=== PATIENT | female | born 1980 ===

== ENCOUNTER 2020-07-09 10:55 | Emergency (ER) | payer MEDICAID, SELFPAY ==
[2020-07-09 11:34] VITALS: BP 169/81; PULSE 80; RESP 18; TEMP 36.6; O2SAT 100; BMI 28.8
--- NOTE | 2020-07-09 11:37 | XR_ITS ---
EXAMINATION: XR TOES, LEFT CLINICAL INFORMATION: Trauma COMPARISON: None TECHNIQUE: 3 views of the left toes were obtained. FINDINGS: There is dorsal dislocation of the proximal phalanx with respect to the metatarsal head of the first or great toe at the first MTP joint. No fracture is seen. Soft tissues are unremarkable. XR/XR toe LT min 2V IMPRESSION: Dorsal dislocation of the proximal phalanx with respect to the metatarsal head of the first MTP joint.
[2020-07-09] MEDS: Ibuprofen 600 MG TABLET PO (11:55)
--- NOTE | 2020-07-09 12:27 | ED_ITS ---
HPI - Extremity Problem General Chief complaint: Extremity Problem Stated complaint: TOE INJ Time Seen by Provider: 07/09/20 11:33 Source: patient Mode of arrival: wheelchair Limitations: no limitations History of Present Illness HPI Narrative: Patient is a 31-year-old female no significant past medical history who slipped and whacked her left great toe on the wall. She states she is unable to ambulate on it. She has no other complaints, she states her ankle is fine in all the other toes are fine. She did not try ice or heat or any analgesics prior to arrival. Related Data Allergies Allergy/AdvReac Type Severity Reaction Status Date / Time No Known Allergies Allergy Verified 07/09/20 11:33 [No Known Allergies*] Review of Systems Review of Systems: Yes all other systems are reviewed and are negative [facility] Past Medical History Medical History No known health problems Social History Social History Alcohol intake: never Smoking Status: Never smoker Use of substances other than those prescribed or required for medical reasons: No Advance Directives: No Advance Directives Information Provided: Yes Physical Exam Vital Signs: Vital Signs: Last Vital Signs Temp 97.8 F 07/09/20 11:34 Pulse 80 07/09/20 11:34 Resp 18 07/09/20 11:34 BP 169/81 H 07/09/20 11:34 Pulse Ox 100 07/09/20 11:34 Body Mass Index 28.8 Const: General: cooperative, healthy appearing, comfortable, no acute distress and well developed Nutritional Appearance: average body habitus Orientation/consciousness: patient oriented x3 Eyes: General: appearance normal, both eyes and all related structures Neck: Neck: Yes normal visual inspection Skin: General skin exam: no rashes or lesions noted Neuro: General: patient oriented x3 Extrem: Other: Left great toe obviously deformed, TTP, unable to flex or extend, NVI, good pulses on foot. No lacerations, ecchymosis or signs of infection noted. 5/5 strength and sensation intact on ankle and the other 4 toes. Course Course Course Narrative: 39-year-old female with no significant past medical history who stubbed her toe just prior to arrival, unable to ambulate on it or move her toe. Will get x-ray. 12:30pm x-ray revealed great toe dislocation, with the help of KASSANDRA Gaston, relocated toe with great relief to the patient, patient now has full range of motion, NVI. Will get repeat x-ray to confirm, then berto-taped and ortho shoe if necessary. 1:40pm x-ray shows great toe reduced properly, no fractures. Will berto-tape and discharge patient Discharge Plan Discharge Clinical Impression: Closed dislocation of toe of left foot Qualifiers: Encounter type: initial encounter Qualified Code(s): S93.105A - Unspecified dislocation of left toe(s), initial encounter Patient Disposition: Home, Self-Care Instructions: Closed Reduction (ED) Additional Instructions: Please follow-up with your PCP if you are not feeling better in the next 5-7 days
--- NOTE | 2020-07-09 12:39 | XR_ITS ---
EXAMINATION: XR TOES, LEFT CLINICAL INFORMATION: Status post reduction COMPARISON: Right toe performed earlier at 1148 today TECHNIQUE: 3 views of the left toes were obtained. FINDINGS: Status post reduction there is normal alignment of first MTP joint. No fracture seen. The soft tissues are normal. XR/XR toe LT min 2V IMPRESSION: Normal alignment of first MTP joint status post reduction. No acute fracture seen.
--- NOTE | 2020-07-09 13:57 | PC.NURSE ---
L GREAT TOE JOHN TAPED
== END 2020-07-09 13:58 | disposition home or self-care (01) ==
PROVIDERS: Emergency Provider Emergency Medicine
DX: S93.105A Unspecified dislocation of left toe(s), initial encounter (principal); M79.675 Pain in left toe(s); Y29.XXXA Contact with blunt object, undetermined intent, initial encounter; Y93.01 Activity, walking, marching and hiking; Y92.009 Unspecified place in unspecified non-institutional (private) residence as the place of occurrence of the external cause; Y99.9 Unspecified external cause status
CPT/HCPCS: 73660; 99283; 99284

== ENCOUNTER 2020-08-27 00:47 | Emergency (ER) | payer MEDICAID, SELFPAY ==
--- NOTE | ~2020-08-27 | CT_ITS ---
EXAMINATION: CT ABDOMEN AND PELVIS WITH CONTRAST CLINICAL INFORMATION: Abdominal pain. COMPARISON: None TECHNIQUE: Multidetector volumetric images were obtained from the superior aspect of the liver through the pubic symphysis following administration 85 mL of Omnipaque 350 intravenous contrast. Sagittal and coronal reformatted images were obtained on the technologist's workstation. Oral contrast: No This CT examination was performed using dose optimization techniques as appropriate, variously including the following: *Automated exposure control *Adjustment of mA and/or kV according to patient size (this includes techniques or standardized protocols for targeted exams where dose is matched to indication/reason for exam; i.e. extremities or head) *Use of iterative reconstruction technique DLP: 492 mGy-cm FINDINGS: LUNG BASES: Mild dependent atelectasis. LIVER, GALLBLADDER, AND BILIARY TREE: There is a 2.2 cm focus of hypoattenuation within hepatic segment 4A near the falciform ligament, most consistent with focal fatty infiltration or aberrant venous inflow. No suspicious hepatic lesions are identified. The liver is normal in contour and attenuation and at the upper limits of normal in size. The gallbladder is unremarkable with no evidence of radiopaque gallstones, gallbladder wall thickening, or obvious pericholecystic inflammatory changes. PANCREAS: Unremarkable. SPLEEN: Unremarkable. ADRENAL GLANDS: Unremarkable. KIDNEYS AND URETERS: There is moderate bilateral hydroureteronephrosis, right side greater than left. No nephrolithiasis or ureterolithiasis. Kidneys are normal in size and contour with symmetric attenuation. No perinephric stranding. The dilated ureters return to a normal caliber at the level of the pelvis adjacent to the markedly enlarged, leiomyomatous uterus. BLADDER: There is significant mass effect on the bladder produced by the adjacent enlarged uterus. A Otoole catheter terminates within the bladder. No bladder wall thickening. GASTROINTESTINAL TRACT: Stomach, small bowel, and colon are normal in caliber. No bowel wall thickening or surrounding inflammatory changes. Appendix is normal. No intraperitoneal free fluid or free air. ABDOMINAL WALL: No significant hernia is appreciated. LYMPH NODES: Normal. VASCULAR: Mild fibrofatty atherosclerotic plaques are present in the infrarenal abdominal aorta. No aneurysmal dilatation. PELVIC VISCERA: There is an enlarged, heterogeneous uterus with multiple fibroids. The largest of these is in the posterior wall uterine body, measuring roughly 8 x 7.3 x 6 cm in size. This likely produces mass effect upon adjacent structures including the ureters. There is a 3.8 cm cyst at the left ovary which appears simple. No appreciable right ovarian abnormalities. OSSEOUS STRUCTURES: Mild anterior wedging of the T11 vertebral body is likely physiologic. There is mild multilevel degenerative disc disease within the lower thoracic spine. No acute osseous abnormalities. Minimal osteoarthritis in the hips. CT/CT abdomen pelvis w con IMPRESSION: 1. Moderate bilateral hydroureteronephrosis is likely produced by mass effect on the ureters in the pelvis by the large leiomyomatous uterus. No renal or ureteral calculi or other obstructing abnormalities are identified. 2. A 3.8 cm simple appearing left ovarian cyst, most likely a follicular cyst.
[2020-08-27 00:56] VITALS: BP 187/101; PULSE 101; RESP 16; TEMP 36.8; O2SAT 98; BMI 29.2
--- NOTE | 2020-08-27 01:02 | ED_ITS ---
HPI - Abdominal Pain General Chief Complaint: Abdominal Pain Stated Complaint: ABD PAIN Time Seen by Provider: 08/27/20 00:57 History of Present Illness HPI narrative: Patient is a 39-year-old female presented today with having difficulty urinating since this evening. Patient denies any chest pain or shortness of breath no systemic complaints. Patient is currently not on any medication. Patient complaining of pain on urination. No fever no chills. No coughing or congestion or upper respiratory symptoms. Not on any narcotics. Denies any recreational drug use Related Data Allergies Allergy/AdvReac Type Severity Reaction Status Date / Time No Known Allergies Allergy Verified 07/09/20 11:33 [No Known Allergies*] Review of Systems Review of Systems Constitutional: No Weight loss, No Fever, No Chills, No Night Sweats, No Fatigue, No Malaise ENT/Mouth: No Hearing loss, No Ear Pain, No Nasal Congestion, No Sinus Pain, No Hoarseness, No sore throat, No Rhinorrhea, No Swallowing Difficulty Eyes: No Eye Pain, No Swelling, No Redness, No Foreign Body, No Discharge, No Vision Changes Cardiovascular: No Chest Pain, No SOB, No Dyspnea on Exertion, No Orthopnea, No Edema, No Palpitations Respiratory: No Cough, No Sputum, No Wheezing, No Smoke Exposure, No Dyspnea Gastrointestinal: No Nausea, No Vomiting, No Diarrhea, No Constipation, No abdominal Pain, No Hematochezia, No Melena Genitourinary: Positive pain on urination. Positive retention Musculoskeletal: No joint pain, No Myalgias, No Joint Swelling Skin: No Skin Lesions, No rash Neuro: No Weakness, No Numbness, No Paresthesias, No Loss of Consciousness, No Dizziness, No Headache Psych: No Anxiety/Panic, No Depression, No SI/HI/AH/VH, No Social Issues, Heme/Lymph: No Bruising, No Bleeding,No Lymphadenopathy Endocrine: No Polyuria, No Polydipsia, No Temperature Intolerance Physical Exam Vital Signs: Vital Signs: Last Vital Signs Temp 98.2 F 08/27/20 00:56 Pulse 101 H 08/27/20 00:56 Resp 16 08/27/20 00:56 BP 187/101 H 08/27/20 00:56 Pulse Ox 98 08/27/20 00:56 Body Mass Index 29.2 Appearance: Alert. Oriented X3. No acute distress. Eyes: Pupils equal, round and reactive to light. ENT: Pharynx normal. Neck: Normal inspection. Neck supple. No lymph nodes noted. No crepitus CVS: Normal heart rate and rhythm. Pulses normal. Normal S1 and S2 Respiratory: No respiratory distress. Breath sounds normal. No Wheezing. No rales Abdomen: Soft and nontender. No rigidity. No distention. good BS x4 Skin: Skin warm and dry. Normal skin color. Normal skin turgor. Extremities: No lower extremity edema. Neurovascular intact to all extremities. No Lacerations. No Rash Neuro: Oriented X 3. No motor deficit. No sensory deficit. Moving all extermities. No slurred speech MDM - Abdominal Pain MDM Narrative Medical decision making narrative: Otoole placed over L of urine was taken out. Patient's creatinine is normal. Hemoglobin is 10. CT scan of the abdomen showed a large fibroid uterus. Likely the cause of patient's urinary retention. Case will be discussed with OBGYN. Will have need follow-up on an outpatient basis. In stable condition. Discussed with Dr. Reuben Araya. Feel comfortable following up on an outpatient basis. Thinks patient should be followed up with [facility] as the surgery will likely occur there. Both numbers given to patient. Currently in stable condition with discharge home. A copy of the CD was also made for patient. Differential Diagnosis Differential diagnosis narrative:: Urinary retention Lab Data Result diagrams: 08/27/20 01:09 08/27/20 01:08 Labs: Lab Results 08/27/20 08/27/20 08/27/20 Range/Units 01:08 01:09 01:09 WBC 12.1 H (4.8-10.8) X10*3/uL RBC 3.81 L (4.20-5.50) X10*6/uL Hgb 9.9 L (12.0-16.0) g/dl Hct 31.0 L (37-47) % MCV 81.4 (80-98) fL MCH 26.0 L (27.0-33.0) pg MCHC 31.9 (31.0-35.0) g/dl RDW 16.0 (11.0-16.0) % Plt Count 373 (160-400) X10*3/uL MPV 10.2 (9.4-12.3) fL Immature Gran % (Auto) 0.5 H (0.0-0.4) % Neut % (Auto) 78.3 H (45-73) % Lymph % (Auto) 14.5 L (20-40) % Mitchell % (Auto) 6.3 (2-11) % Eos % (Auto) 0.2 (0-4) % Baso % (Auto) 0.2 (0-2) % Lymph # (Auto) 1.8 (1.2-4.9) X10*3/uL Mitchell # (Auto) 0.8 (0.1-1.2) X10*3/uL Eos # (Auto) 0.0 (0.0-0.4) X10*3/uL Baso # (Auto) 0.0 (0.0-0.2) X10*3/uL Abs Immat Gran (auto) 0.06 H (0.00-0.03) X10*3/uL Absolute Neuts (auto) 9.5 H (2.0-8.3) X10*3/uL Absolute Nucleated RBC 0.000 (0.0-0.012) X10*3/uL Nucleated RBC % (auto) 0.0 (0.0-0.2) /100WBC Sodium 131 L (135-145) mmol/L Potassium 3.9 (3.3-5.1) mmol/L Chloride 101 (96-108) mmol/L Carbon Dioxide 20 L (22-29) mmol/L Anion Gap 14 (12-20) BUN 8 L (9-16) mg/dL Creatinine 0.69 (0.5-1.4) mg/dL Estim Creat Clear Calc 107.2 Estimated GFR > 60 Random Glucose 104 (60-115) mg/dL Calcium 8.7 (8.4-10.2) mg/dL Total Bilirubin 0.3 (0.0-1.0) mg/dL Direct Bilirubin < 0.2 (0.0-0.5) mg/dL AST 16 (5-31) U/L ALT 13 (0-31) U/L Alkaline Phosphatase 54 (39-117) U/L Total Protein 6.8 (6.5-8.0) g/dL Albumin 4.1 (3.5-5.0) g/dL Urine Color YELLOW Urine Appearance CLEAR Urine pH 6.0 (5.0-8.0) Ur Specific [place] <= 1.005 (1.005-1.025) Urine Protein NEG (NEG-TRACE) MG/DL Urine Glucose (UA) NEG (NEG) MG/DL Urine Ketones NEG (NEG) MG/DL Urine Blood NEG (NEG) Urine Nitrite NEG (NEG) Ur Leukocyte Esterase NEG (NEG) Discharge Plan Discharge Clinical Impression: Fibroid, Acute urinary retention Patient Disposition: Home, Self-Care Instructions: Acute Urinary Retention in Women (ED) Referrals: [facility] [Provider Group] - 2 days Chip Alexis MD [Physician] - 2 days [facility] Past Medical History Medical History No known health problems Social History Social History Alcohol intake: never Smoking Status: Never smoker Advance Directives: No Advance Directives Information Provided: No
[2020-08-27 01:17] LABS: MANUAL DIFF FLAG NO
[2020-08-27 01:18] LABS: Basophils Percent Auto 0.2 % (0-2); Eosinophils Percent Auto 0.2 % (0-4); Hemoglobin 9.9 g/dl (12.0-16.0); Imm Gran Abs Auto 0.06 X10*3/uL (0.00-0.03); Imm Gran Pct Auto 0.5 % (0.0-0.4); Lymphocytes Absolute Auto 1.8 X10*3/uL (1.2-4.9); Lymphocytes Percent Auto 14.5 % (20-40); Mean Corpuscular HGB Conc 31.9 g/dl (31.0-35.0); Mean Corpuscular Volume 81.4 fL (80-98); Mean Platelet Volume 10.2 fL (9.4-12.3); Monocytes Absolute Auto 0.8 X10*3/uL (0.1-1.2); Monocytes Percent Auto 6.3 % (2-11); Neutrophils Absolute Auto 9.5 X10*3/uL (2.0-8.3); Neutrophils Percent Auto 78.3 % (45-73); Platelet Count 373 X10*3/uL (160-400); Red Blood Count 3.81 X10*6/uL (4.20-5.50); White Blood Count 12.1 X10*3/uL (4.8-10.8)
[2020-08-27 01:41] LABS: Glucose Urine UA NEG (NEG); Leukocyte Esterase Urine NEG (NEG); Nitrite Urine NEG (NEG); Specific Gravity - Urine <= 1.005 (1.005-1.025); Urine Blood NEG (NEG); Urine Ketones NEG (NEG); Urine Protein NEG (NEG-TRACE)
[2020-08-27 01:42] LABS: Appearance Urine CLEAR; Color Urine YELLOW
[2020-08-27 01:43] LABS: Alanine Aminotransferase 13 U/L (0-31); Albumin Level 4.1 g/dL (3.5-5.0); Alkaline Phosphatase 54 U/L (39-117); Anion Gap 14 (12-20); Aspartate Amino Transferase 16 U/L (5-31); Bilirubin Direct < 0.2 mg/dL (0.0-0.5); Bilirubin Total 0.3 mg/dL (0.0-1.0); Blood Urea Nitrogen 8 mg/dL (9-16); Calcium 8.7 mg/dL (8.4-10.2); Carbon Dioxide 20 mmol/L (22-29); Chloride 101 mmol/L (96-108); Creatinine Clr Calc Pharmacy 107.2; Estimated Glomerular Filt Rate > 60; Glucose Random 104 mg/dL (60-115); Potassium 3.9 mmol/L (3.3-5.1); Sodium 131 mmol/L (135-145); Total Protein 6.8 g/dL (6.5-8.0)
--- NOTE | 2020-08-27 06:09 | PM.GYNCN ---
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 Systems Review of Systems ROS Unobtainable: All systems reviewed & are unremarkable except as noted in HPI and below Cardiovascular: Denies Palpatations, Loss of consciousness and Chest pain Respiratory: Denies Cough, Wheezing and Shortness of breath Musculoskeletal: Denies Low back pain Gastrointestinal: Denies Heartburn, Constipation, Diarrhea, Nausea and Vomiting Genitourinary: Denies Pain with urination, Burning with urination and Urinary frequency Neurological: Denies Migranes Psychological: Denies Depression [facility] Past Medical History Medical History No known health problems Social History Social History Alcohol intake: never Smoking Status: Never smoker Smoked in Last 30 Days: No Advance Directives: No Advance Directives Information Provided: No Meds Allergies Allergy/AdvReac Type Severity Reaction Status Date / Time No Known Allergies Allergy Verified 07/09/20 11:33 [No Known Allergies*] B[employer]ING ALLEY MANAGER Physical Exam Vitals Vital signs: Temp Pulse Resp BP Pulse Ox 98.2 F 101 H 16 187/101 H 98 08/27/20 00:56 08/27/20 00:56 08/27/20 00:56 08/27/20 00:56 08/27/20 00:56 Body Mass Index 29.2 [employer]ING ALLEY MANAGER - Results Labs CBC & Chem 7: 08/27/20 01:09 08/27/20 01:08 Labs: Short CBC 08/27/20 Range/Units 01:09 WBC 12.1 H (4.8-10.8) X10*3/uL Hgb 9.9 L (12.0-16.0) g/dl Hct 31.0 L (37-47) % Plt Count 373 (160-400) X10*3/uL BMP 08/27/20 01:08 Sodium 131 L Potassium 3.9 Chloride 101 Carbon Dioxide 20 L BUN 8 L Creatinine 0.69 Calcium 8.7 Liver Function 08/27/20 Range/Units 01:08 Total Bilirubin 0.3 (0.0-1.0) mg/dL Direct Bilirubin < 0.2 (0.0-0.5) mg/dL AST 16 (5-31) U/L ALT 13 (0-31) U/L Alkaline Phosphatase 54 (39-117) U/L Albumin 4.1 (3.5-5.0) g/dL Urine 08/27/20 Range/Units 01:09 Urine Color YELLOW Urine Appearance CLEAR Urine pH 6.0 (5.0-8.0) Ur Specific [place] <= 1.005 (1.005-1.025) Urine Protein NEG (NEG-TRACE) MG/DL Urine Glucose (UA) NEG (NEG) MG/DL Assessment and Plan (1) Fibroid: Status: Acute Discussed the case with Dr. DOAN, differential diagnosis discussed including possible my sarcoma given the large size of the myoma at an early age and the need for urgent hysterectomy to relieve bilateral hydroureter and prevent possible kidney damage. Recommended for the patient to follow-up with OBGYN at [facility] since there is no certified nutritionist oncologist on staff and possible need for certified nutritionist oncologist intraoperatively for the possibility of myosarcoma. The patient is to be given the number for [facility] for follow-up in 1-2 days (2) Acute urinary retention: Status: Acute
== END 2020-08-27 04:13 | disposition home or self-care (01) ==
PROVIDERS: Emergency Provider Emergency Medicine Emergency Medical Services
DX: R33.8 Other retention of urine (principal); D25.9 Leiomyoma of uterus, unspecified; N13.1 Hydronephrosis with ureteral stricture, not elsewhere classified
CPT/HCPCS: 36415; 51702; 74177; 80048; 80076; 81003; 85025; 99282; 99284; Q9967

== ENCOUNTER 2021-10-04 13:17 | Emergency (ER) | payer MEDICAID, SELFPAY ==
[2021-10-04] VITALS (10 sets, daily range): BP systolic 117–148; BP diastolic 66–89; PULSE 61–88; RESP 16–18; TEMP 36.6–37; O2SAT 97–100; BMI 27.0
--- NOTE | ~2021-10-04 | CT_ITS ---
EXAMINATION: CT HEAD WITHOUT CONTRAST CLINICAL INFORMATION: Dizziness. COMPARISON: None TECHNIQUE: Contiguous axial imaging was performed from the skull base to vertex without intravenous administration of contrast. This CT examination was performed using dose optimization techniques as appropriate, variously including the following: *Automated exposure control. *Adjustment of mA and/or kV according to patient size (this includes techniques or standardized protocols for targeted exams where dose is matched to indication/reason for exam; i.e. extremities or head). *Use of iterative reconstruction technique. DLP: 680 mGy-cm FINDINGS: There is no evidence of acute intracranial hemorrhage or edematous territorial infarction. There is no abnormal attenuation within the brain parenchyma. Mckeon-white matter differentiation is preserved. The ventricles are normal in size and configuration. No evidence for obstructive hydrocephalus. The cerebellar tonsils are mildly low lying, positioned 0.3 cm below the foramen magnum. The CSF space of the foramen magnum is maintained. No abnormal mass effect or midline shift. No extra-axial fluid collections. No acute soft tissue or osseous abnormalities. Mild mucosal thickening of the paranasal sinuses. Moderate leftward nasal septal deviation. Mild right-sided mastoid effusion. Partial thinning of the right-sided sigmoid plate without overt venous diverticulum. The left-sided mastoid air cells are well aerated. CT/CT head/brain wo con IMPRESSION: 1. No evidence of acute intracranial hemorrhage or edematous territorial infarction. 2. Mild cerebellar tonsillar ectopia.
--- NOTE | ~2021-10-04 | XR_ITS ---
EXAMINATION: XR CHEST CLINICAL INFORMATION: Shortness of breath COMPARISON: None TECHNIQUE: Frontal view of the chest was obtained. FINDINGS: No focal consolidation. No pneumothorax. Trachea is midline. Cardiomediastinal silhouette is not enlarged. No large pleural effusion. Osseous structures are intact. Soft tissues are unremarkable XR/XR chest 1V IMPRESSION: No acute cardiopulmonary process.
--- NOTE | 2021-10-04 13:24 | ECG_ITS ---
Test Reason : dizziness Blood Pressure : / mmHG Vent. Rate : 070 BPM Atrial Rate : 070 BPM P-R Int : 154 ms QRS Dur : 088 ms QT Int : 366 ms P-R-T Axes : 005 038 025 degrees QTc Int : 395 ms Normal sinus rhythm Normal ECG No previous ECGs available Referred By: Generic ED Physician Electronically Signed By:BEVERLY MORAN
--- NOTE | 2021-10-04 14:33 | ED_ITS ---
HPI - Dizziness General Chief Complaint: Dizziness Stated Complaint: dizziness Time Seen by Provider: 10/04/21 14:28 Source: patient, family (Significant other) and interpreter translator Mode of arrival: ambulatory Limitations: no limitations History of Present Illness HPI Narrative: 41-year-old female came in for evaluation of dizziness for the past 4-5 days. Patient describes dizziness as room spinning around her, it is intermittent, more when she changed position specially from supine to stand, symptoms is associated with feeling tired, sleeping more and headache since yesterday. While interviewing the patient found to be short of breath and wheezing, patient declined any recent travel or lower extremity swelling, recently quit smoking about a month ago. Related Data Previous Rx's Medication Instructions Recorded albuterol sulfate 90 mcg/actuation 1 inh INHALATION QID PRN #6.7 g 10/04/21 aerosol inhaler Allergies Allergy/AdvReac Type Severity Reaction Status Date / Time No Known Allergies Allergy Verified 10/04/21 13:40 [No Known Allergies*] Review of Systems Review of Systems: All other systems are reviewed and are negative Constitutional: Reports as per HPI and Reports no additional constitutional comp laints Eyes: Reports as per HPI and Reports no additional eye complaints Reports system reviewed and no additional complaints, except as documented Cardiovascular: Reports as per HPI and Reports no additional cardiovascular complaints Respiratory: Reports as per HPI and Reports no additional respiratory complaints Gastrointestinal: Reports as per HPI and Reports no additional gastrointestinal complaints Genitourinary: Reports no additional female genitourinary complaints Musculoskeletal: Reports no additional musculoskeletal complaints Skin/Breast: Reports system reviewed and no additional complaints, except as docu Psychiatric: Reports no additional psychiatric complaints Endocrine: Reports no additional endocrine complaints Hematologic/Lymphatic: Reports no additional hematologic/lymphatic complaints Allergic/Immunologic: Reports no additional allergic/immunologic complaints Reports system reviewed and no additional complaints, except as documented and Reports Abnormal speech present [facility] Past Medical History Medical History No known health problems Social History Social History Alcohol intake: never Advance Directives: No Advance Directives Information Provided: No Physical Exam Vital Signs: Vital Signs: Last Vital Signs Temp 97.9 F 10/04/21 13:40 Pulse 70 10/04/21 15:30 Resp 16 10/04/21 14:38 BP 147/89 H 10/04/21 15:30 Pulse Ox 99 10/04/21 15:30 BMI result Body Mass Index 27.0 Vital signs have been reviewed as appeared to be correct. Blood pressure normal. Heart rate normal. Respiration rate normal. Temperature normal. Oxygen saturation normal. Appearance: Alert. Oriented X3. No acute distress. Head: Normal external exam. Normocephalic. Atraumatic. No Sprague signs noted. No raccoon eyes noted Eyes: PERRLA. EOMI. Conjunctiva and sclera normal. Eyelids normal. ENT: TM's Normal. Pharynx normal. Uvula midline. Moist mucous membranes. No trismus noted. No drooling noted. No muffled voice noted. Neck: Normal inspection. Neck supple. FROM. No adenopathy. Thyroid Normal. No meningeal signs. No neck mass noted. CVS: Normal heart rate and rhythm. Heart sound normal. No murmurs noted. Pulses normal throughout. Respiratory: No respiratory distress. Painless inspiration. Breath sounds normal. No wheezes/rales/rhonchi noted. Chest nontender. No accessory muscle usage noted or decreased air movement noted. Abdomen: Soft and nontender. Bowel sounds normal in all 4 quadrants. No distention noted. No organomegaly noted. No visible injury noted. Back: No CVA tenderness. Full range of motion noted. Skin: Skin warm and dry. Normal skin color. Normal skin turgor. No rashes/lesions/lacerations noted. Extremities: No lower extremity edema. Extremities exhibit normal range of motion. Extremities nontender. Neuro: Oriented X 3. Cranial nerve exam: II-XII are grossly intact No motor deficit. No sensory deficit. Reflexes normal. Cerebellar exam: Able to ambulate in a steady gait, no [id number] dysmetria. Course Course Course Narrative: Assessment and plan. 41-year-old female came in for evaluation of dizziness more with positional, normal neuro exam, patient feels better with meclizine. Sign-out to Dr. Ross to check head CT and urine otherwise rest of workup is unremarkable. Anticipate to be discharged on meclizine. Incidental asthma/bronchitis. Will start the patient on bronchodilator. MDM - Dizziness Lab Data Attestation: I reviewed the patient's lab results. Result diagrams: 10/04/21 14:41 10/04/21 14:41 Labs: Lab Results 10/04/21 10/04/21 10/04/21 Range/Units 14:40 14:41 14:41 WBC 10.8 (4.8-10.8) X10*3/uL RBC 4.58 (4.20-5.50) X10*6/uL Hgb 13.6 (12.0-16.0) g/dl Hct 41.2 (37.0-47.0) % MCV 90.0 (80.0-98.0) fL MCH 29.7 (27.0-33.0) pg MCHC 33.0 (31.0-35.0) g/dl RDW 13.7 (11.0-16.0) % Plt Count 300 (160-400) X10*3/uL MPV 10.5 (9.4-12.3) fL Immature Gran % (Auto) 0.3 (0.0-0.4) % Neut % (Auto) 69.9 (45-73) % Lymph % (Auto) 22.0 (20-40) % [place] % (Auto) 7.1 (2-11) % Eos % (Auto) 0.4 (0-4) % Baso % (Auto) 0.3 (0-2) % Lymph # (Auto) 2.4 (1.2-4.9) X10*3/uL [place] # (Auto) 0.8 (0.1-1.2) X10*3/uL Eos # (Auto) 0.0 (0.0-0.4) X10*3/uL Baso # (Auto) 0.0 (0.0-0.2) X10*3/uL Abs Immat Gran (auto) 0.03 (0.00-0.03) X10*3/uL Absolute Neuts (auto) 7.5 (2.0-8.3) x10*3/uL Absolute Nucleated RBC 0.000 (0.0-0.012) X10*3/uL Nucleated RBC % (auto) 0.0 (0.0-0.2) /100WBC D-Dimer High Sensitivty < 150 NG/ML Sodium (135-145) mmol/L Potassium (3.3-5.1) mmol/L Chloride (96-108) mmol/L Carbon Dioxide (22-29) mmol/L Anion Gap (12-20) BUN (9-16) mg/dL Creatinine (0.5-1.4) mg/dL Estim Creat Clear Calc Estimated GFR Random Glucose (60-115) mg/dL Calcium (8.4-10.2) mg/dL Total Bilirubin (0.0-1.0) mg/dL Direct Bilirubin (0.0-0.5) mg/dL AST (5-31) U/L ALT (0-31) U/L Alkaline Phosphatase (39-117) U/L Troponin I High Sens (<3.5-17.0) ng/L B-Natriuretic Peptide (<100) pg/mL Total Protein (6.5-8.0) g/dL Albumin (3.5-5.0) g/dL Lipase (8-78) U/L Urine Color YELLOW Urine Appearance CLEAR Urine pH 6.0 (5.0-8.0) Ur Specific Eaton 1.010 (1.005-1.025) Urine Protein NEG (NEG-TRACE) MG/DL Urine Glucose (UA) NEG (NEG) MG/DL Urine Ketones NEG (NEG) MG/DL Urine Blood NEG (NEG) Urine Nitrite NEG (NEG) Ur Leukocyte Esterase NEG (NEG) 10/04/21 10/04/21 Range/Units 14:41 14:41 WBC (4.8-10.8) X10*3/uL RBC (4.20-5.50) X10*6/uL Hgb (12.0-16.0) g/dl Hct (37.0-47.0) % MCV (80.0-98.0) fL MCH (27.0-33.0) pg MCHC (31.0-35.0) g/dl RDW (11.0-16.0) % Plt Count (160-400) X10*3/uL MPV (9.4-12.3) fL Immature Gran % (Auto) (0.0-0.4) % Neut % (Auto) (45-73) % Lymph % (Auto) (20-40) % [place] % (Auto) (2-11) % Eos % (Auto) (0-4) % Baso % (Auto) (0-2) % Lymph # (Auto) (1.2-4.9) X10*3/uL [place] # (Auto) (0.1-1.2) X10*3/uL Eos # (Auto) (0.0-0.4) X10*3/uL Baso # (Auto) (0.0-0.2) X10*3/uL Abs Immat Gran (auto) (0.00-0.03) X10*3/uL Absolute Neuts (auto) (2.0-8.3) x10*3/uL Absolute Nucleated RBC (0.0-0.012) X10*3/uL Nucleated RBC % (auto) (0.0-0.2) /100WBC D-Dimer High Sensitivty NG/ML Sodium 139 (135-145) mmol/L Potassium 4.3 (3.3-5.1) mmol/L Chloride 107 (96-108) mmol/L Carbon Dioxide 26 (22-29) mmol/L Anion Gap 10 L (12-20) BUN 11 (9-16) mg/dL Creatinine 0.70 (0.5-1.4) mg/dL Estim Creat Clear Calc 107.3 Estimated GFR > 60 Random Glucose 111 (60-115) mg/dL Calcium 9.7 D (8.4-10.2) mg/dL Total Bilirubin 0.2 (0.0-1.0) mg/dL Direct Bilirubin < 0.2 (0.0-0.5) mg/dL AST 23 D (5-31) U/L ALT 42 H (0-31) U/L Alkaline Phosphatase 54 (39-117) U/L Troponin I High Sens < 3.5 (<3.5-17.0) ng/L B-Natriuretic Peptide 11 (<100) pg/mL Total Protein 6.9 (6.5-8.0) g/dL Albumin 4.1 (3.5-5.0) g/dL Lipase 19 (8-78) U/L Urine Color Urine Appearance Urine pH (5.0-8.0) Ur Specific Eaton (1.005-1.025) Urine Protein (NEG-TRACE) MG/DL Urine Glucose (UA) (NEG) MG/DL Urine Ketones (NEG) MG/DL Urine Blood (NEG) Urine Nitrite (NEG) Ur Leukocyte Esterase (NEG) Imaging Data Chest x-ray: Attestation: I personally reviewed and interpreted this imaging study as follows: Radiologist's impression: No acute cardiopulmonary pathology. ECG Data Attestation: I personally reviewed and interpreted this ECG as follows: Interpretation: Normal sinus rhythm at 70 beats per minutes, normal axis deviation, normal intervals. Discharge Plan Discharge Clinical Impression: Benign paroxysmal positional vertigo, Bronchitis Patient Disposition: Home, Self-Care Instructions: Benign Paroxysmal Positional Vertigo (ED) Prescriptions: New albuterol sulfate 90 mcg/actuation HFA aerosol inhaler 1 inh inhalation QID PRN (Reason: shortness of breath or wheezing) Qty: 6.7 0RF Referrals: [facility] [Primary Care Provider] -
[2021-10-04] MEDS: Albuterol/Iprat 2.5/0.5MG 3 ML AMPUL.NEB INHALE (14:37)
[2021-10-04 14:49] LABS: MANUAL DIFF FLAG NO
[2021-10-04] MEDS: Meclizine HCl 25 MG TABLET PO (14:49)
[2021-10-04 14:51] LABS: Basophils Percent Auto 0.3 % (0-2); Eosinophils Percent Auto 0.4 % (0-4); Hematocrit 41.2 % (37.0-47.0); Hemoglobin 13.6 g/dl (12.0-16.0); Imm Gran Abs Auto 0.03 X10*3/uL (0.00-0.03); Imm Gran Pct Auto 0.3 % (0.0-0.4); Lymphocytes Absolute Auto 2.4 X10*3/uL (1.2-4.9); Mean Corpuscular Hemoglobin 29.7 pg (27.0-33.0); Mean Platelet Volume 10.5 fL (9.4-12.3); Monocytes Absolute Auto 0.8 X10*3/uL (0.1-1.2); Monocytes Percent Auto 7.1 % (2-11); Neutrophils Absolute Auto 7.5 x10*3/uL (2.0-8.3); Neutrophils Percent Auto 69.9 % (45-73); Platelet Count 300 X10*3/uL (160-400); Red Blood Count 4.58 X10*6/uL (4.20-5.50); Red Cell Distribution Width 13.7 % (11.0-16.0); White Blood Count 10.8 X10*3/uL (4.8-10.8)
[2021-10-04 14:57] LABS: Appearance Urine CLEAR; Color Urine YELLOW; Glucose Urine UA NEG (NEG); Leukocyte Esterase Urine NEG (NEG); Nitrite Urine NEG (NEG); Urine Blood NEG (NEG); Urine Ketones NEG (NEG); Urine Protein NEG (NEG-TRACE)
[2021-10-04 15:06] LABS: D Dimer High Sensitivity < 150 NG/ML
[2021-10-04 15:09] LABS: Alanine Aminotransferase 42 U/L (0-31); Albumin Level 4.1 g/dL (3.5-5.0); Alkaline Phosphatase 54 U/L (39-117); Anion Gap 10 (12-20); Aspartate Amino Transferase 23 U/L (5-31); Bilirubin Direct < 0.2 mg/dL (0.0-0.5); Bilirubin Total 0.2 mg/dL (0.0-1.0); Blood Urea Nitrogen 11 mg/dL (9-16); Calcium 9.7 mg/dL (8.4-10.2); Carbon Dioxide 26 mmol/L (22-29); Chloride 107 mmol/L (96-108); Creatinine Clr Calc Pharmacy 107.3; Estimated Glomerular Filt Rate > 60; Glucose Random 111 mg/dL (60-115); Lipase 19 U/L (8-78); Potassium 4.3 mmol/L (3.3-5.1); Sodium 139 mmol/L (135-145); Total Protein 6.9 g/dL (6.5-8.0)
[2021-10-04 15:13] LABS: B Type Natriuretic Peptide 11 pg/mL (<100); Troponin-I High Sensitivity < 3.5 ng/L (<3.5-17.0)
[2021-10-04 16:22] LABS: UPreg QC Valid YES; Urine Pregnancy NEGATIVE (NEGATIVE)
--- NOTE | 2021-10-04 19:36 | PC.NURSE ---
Pt alert and oriented x4, calm and cooperative. Denies pain. Denies SOB, denies chest pain. Pt ambulating without issues, steady on her feet. Pt voided multiple times while in ER. Pt state she is ready for discharge, denies dizziness. No IV in place. Vitals stable. Educated on dc and stated an understanding. Left ER with in private car.
== END 2021-10-04 19:38 | disposition home or self-care (01) ==
PROVIDERS: Emergency Medicine; Emergency Provider Emergency Medicine
DX: H81.10 Benign paroxysmal vertigo, unspecified ear (principal); J40 Bronchitis, not specified as acute or chronic
CPT/HCPCS: 36415; 70450; 71045; 80048; 80076; 81003; 81025; 83690; 83880; 84484; 85025; 85379; 93005; 94640; 99284

== ENCOUNTER 2021-10-20 11:04 | Outpatient (REF) | payer MEDICAID, SELFPAY ==
--- NOTE | ~2021-10-20 | XR_ITS ---
EXAMINATION: XR LUMBOSACRAL SPINE CLINICAL INFORMATION: Lumbago with right-sided sciatica. COMPARISON: Selected images of the abdomen and pelvic CT scan of 08/27/2020 TECHNIQUE: Three views of the lumbosacral spine. FINDINGS: There are 5 lumbar-type nonrib-bearing vertebrae. The vertebral body heights and alignment are maintained. Intervertebral disc spaces are preserved. Minimal anterior endplate hypertrophic spurring is noted. Mild degenerative changes are noted in the visualized lower thoracic spine with anterior endplate spurring and endplate sclerotic changes. The posterior elements are intact. Likely mild facet arthropathy at L4-L5 and L5-S1, right greater than left. Limited evaluation of the sacroiliac joints and visualized hip joints is unremarkable. Symphysis pubis is intact. No abnormality of the paraspinous soft tissues is demonstrated on the plain radiographs. No suspicious lytic or blastic osseous lesions are seen. XR/XR lumbar spine 2-3V IMPRESSION: No evidence of acute compression fracture or suspicious osseous lesion in the lumbar spine. Mild lumbar spondylosis.
== END 2021-10-20 11:05 | disposition home or self-care (01) ==
LOC: HO.XRAY 11:04
PROVIDERS: Visit Provider Emergency Medicine
DX: M54.41 Lumbago with sciatica, right side (principal)
CPT/HCPCS: 72100

== ENCOUNTER 2021-10-24 19:07 | Emergency (ER) | payer MEDICAID, SELFPAY ==
--- NOTE | ~2021-10-24 | XR_ITS ---
EXAMINATION: XR CHEST CLINICAL INFORMATION: Asthma COMPARISON: 10/04/2021 TECHNIQUE: Frontal view of the chest was obtained. FINDINGS: Lungs are hyperinflated, more so when compared to the 10/04/2021 study.. The heart and pulmonary vessels are normal. No infiltrates, effusions or lung masses are seen XR/XR chest 1V IMPRESSION: Hyperinflated lungs consistent with given history of asthma. No infiltrates.
[2021-10-24 19:14] VITALS: BP 144/84; PULSE 80; RESP 18; TEMP 36.1; O2SAT 97; BMI 29.5
== END 2021-10-24 21:26 | disposition left against medical advice (07) ==
PROVIDERS: Emergency Provider Emergency Medicine
DX: R06.02 Shortness of breath (principal); J45.909 Unspecified asthma, uncomplicated; R07.89 Other chest pain
CPT/HCPCS: 71045; 99283

== ENCOUNTER 2021-10-27 10:42 | Outpatient (RCR) | payer MEDICAID, SELFPAY ==
[2021-10-27 10:56] VITALS: BP 136/86; PULSE 73; O2SAT 97
== END 2021-10-27 11:46 | disposition home or self-care (01) ==
LOC: HO.PT 10:42
PROVIDERS: PCP Emergency Medicine; Visit Provider Emergency Medicine
DX: H81.12 Benign paroxysmal vertigo, left ear (principal)
CPT/HCPCS: 97161

== ENCOUNTER 2023-07-05 10:54 | Outpatient (REF) | payer MEDICAID, SELFPAY ==
--- NOTE | ~2023-07-05 | XR_ITS ---
EXAMINATION: XR SOFT TISSUE NECK CLINICAL INDICATION: Localized neck swelling, mass and lump. COMPARISON: None available. TECHNIQUE: A single lateral view of the soft tissues of the neck was obtained. FINDINGS: Soft tissue films of the neck demonstrate a normal larynx, pharynx and upper trachea. No soft tissue swelling or opaque foreign body is demonstrated. XR/XR soft tissue neck IMPRESSION: Unremarkable examination.
--- NOTE | ~2023-07-05 | XR_ITS ---
EXAMINATION: CERVICAL SPINE 3 VIEWS CLINICAL INFORMATION: Cervical swelling with mass. COMPARISON: None. TECHNIQUE: Frontal, lateral and odontoid views are obtained. FINDINGS: Vertebral body heights and alignment are normal. The included disc spaces are well-maintained. Of note, the C7-T1 interspace is not visualized. No acute fracture or spondylolisthesis is seen. There is mild anterior spondylosis at C4-C5 and C5-C6. The posterior elements are intact. There is no prevertebral soft tissue swelling. The dens and C7-T1 interface are normal. No soft tissue mass is seen. XR/XR cervical spine 3V IMPRESSION: 1. No acute fracture or spondylolisthesis is seen. 2. The cervical disc spaces are well-maintained. 3. There is mild anterior spondylosis C4-C5 and C5-C6. 4. No soft tissue mass is appreciated radiographically. If clinically warranted, consider cross-sectional evaluation of the soft tissues of the neck as a more sensitive examination for subtle mass lesion.
== END 2023-07-05 10:55 | disposition home or self-care (01) ==
LOC: HO.HOSX 10:54
PROVIDERS: Visit Provider Physical Medicine & Rehabilitation
DX: L02.11 Cutaneous abscess of neck (principal); Z79.899 Other long term (current) drug therapy
CPT/HCPCS: 70360; 72040; 99202

== ENCOUNTER 2023-07-05 10:54 | Outpatient (AMB) | payer MEDICAID, SELFPAY ==
--- NOTE | 2023-07-05 11:26 | MHC.OFFVIS ---
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 States she noticed it last week. States its painful, red and tender. Reports about 3 days ago she felt wet on her neck and believes it ruptured while sleeping. She was prescribed ABX at the urgent walk in center and completed it. Allergies No Known Allergies [No Known Allergies*] Allergy (Verified 07/05/23 11:30) Medication List - Last Reconciled 07/05/23 by Ani Riley MD albuterol sulfate 90 mcg/actuation 1 inh inhalation QID PRN meclizine 25 mg PO TID PRN HPI HPI Comments History of Present Illness Details Apparently patient developed an absence on neck a week ago or so. Went to Urgent Care and started on antibiotics. She was referred to general surgery but she missed the appointment (was late for registration) and so she was referred to ortho/physiatry instead. She says lump popped with pus oozing, it is smaller in size now. No fever. She finished 7th day of antibiotics today. 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 Patient was appropriately conversant and oriented. Good historian. MSK: Inspection reveals appropriate head and neck positioning. 1x1cm mass palpable, with redness superficially. No more drainage or pus discharge. No pain with palpation over the neck musculature. Cervical ROM was full. Spurling's sign negative. Strength is 5/5 in all muscle groups tested. No increased tone noted. Neurological: Neurologic examination of the upper and lower extremities was nonfocal with intact sensation, muscle stretch reflexes and without focal motor deficits . Locke?s negative bilaterally. Gait is non-antalgic without loss of balance. Results Reviewed Results Reviewed: I independently reviewed the results of the following: Xrays cspine and neck unremarkable soft tissue, but await final reading Assessment & Plan Assessment & Plan (1) Abscess of skin of neck: Code(s): L02.11 - Cutaneous abscess of neck Plan Looks better per patient, finished antibiotics. Ultimately may need I&D. Will assist with getting her appointment with General Surgery. Assessment and plan discussed with patient, and patient was agreeable. All questions were answered thoroughly. Ani Riley MD, TU Board Certified, [place] [employer] and [employer] (ABPMR) Board Certified, [place] Board [employer] Electro[employer]ostic [employer] (ABEM) Orders: Orders XR cervical spine 3V Today R22.1 - Localized swelling, mass and lump, neck XR soft tissue neck Today R22.1 - Localized swelling, mass and lump, neck Coding Level of Care Code New Pt Level 3 (00809) Diagnoses Abscess of skin of neck L02.11
[2023-07-05 11:27] VITALS: BMI 32.6
== END 2023-07-05 12:06 | disposition home or self-care (01) ==
PROVIDERS: Visit Provider Physical Medicine & Rehabilitation
DX: L02.11 Cutaneous abscess of neck (principal)
CPT/HCPCS: 99203

== ENCOUNTER 2023-07-12 11:21 | Outpatient (AMB) | payer MEDICAID, SELFPAY ==
--- NOTE | 2023-07-12 11:23 | A.OFFVIS_ITS ---
Intake Vital Signs 3 07/12/23 11:31 Height 5 ft 3 in Weight 183 lb BMI 32.4 BP 173/100 H Blood Pressure Location Lt brachial Position Sitting Pulse 72 Intake Visit Reasons: Rt neck abscess Intake Note: Patient is seen in office for evaluation and treatment of a right neck abscess. 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 The lesion subsequently spontaneously ruptured producing a large amount of purulence fluid. She continues to have some fluid draining on occasion but generally feels much improved. She continues to also feel a lump under the skin which is no longer tender. Two previous cysts located in the left chest were excised in the past but were not as largest the current cyst. She currently denies any fever, chills, or other systemic symptoms. Patient also reports a cystic lesion located in the left 4th finger middle phalanx which developed after trying to open a jar. She immediately felt a sharp pain and noted the palpable lump. The lump has not changed significantly since 1st being identified. She is left-hand dominant still has difficulty now with activities due to the pain. 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 Review of Systems Const All systems reviewed & are unremarkable except as noted in HPI and below Denies chills, Denies fever(s), Denies headache(s), Denies poor appetite and Denies weakness ENT Denies headache(s) Card Denies chest pain, Denies irregular heart rhythm, Denies palpitations and Denies dyspnea Resp Denies cough, Denies excessive phlegm production and Denies dyspnea GI Denies abdominal pain, Denies bloating, Denies change in bowel habits, Denies constipation, Denies heartburn, Denies diarrhea, Denies nausea and Denies vomiting Denies urinary frequency Musc Denies back pain, Denies muscle weakness and Denies numbness Skin/Breast Reports as per HPI, Denies changing lesions and Denies unusual bruising Neuro Denies headache(s), Denies numbness, Denies paresthesias and Denies weakness Psych Denies anxiety and Denies depression Endo Denies palpitations Bon/Lymph Denies lymphadenopathy Physical Exam Vital Signs: Last Vital Signs Pulse 72 07/12/23 11:31 BP 173/100 H 07/12/23 11:31 BMI result Body Mass Index 32.4 Const General: cooperative and no acute distress Nutritional Appearance: well nourished Orientation/consciousness: patient oriented x3 Limitations: no limitations HEENT Head: Yes normocephalic and Yes atraumatic Ears: hearing grossly normal bilaterally Neck Neck images: 2 1. 1.5 cm epidermal inclusion cyst of the right neck, with a central punctum which is open but not draining. A small amount of fluid is palpable below the skin. Resp Effort & Inspection: normal respiratory effort, no audible wheezes, no cough and no respiratory distress Cardio Jugular venous distension: no JVD GI Inspection: Yes normal to inspection Skin Other: Warm, dry, no rash Neuro General: patient oriented x3 Extrem Other: Fourth finger left hand middle phalanx with a cystic/bluish lesion, tender to palpation suggestive of a ganglion cyst. Full range of motion of the finger is noted. General: Yes no clubbing, cyanosis or edema Hand/finger images: 2 1. Site of palpable lesion Assessment & Plan Assessment & Plan (1) Ganglion cyst of finger: Code(s): M67.449 - Ganglion, unspecified hand Plan: Patient reporting pain in the left 4th finger as noted above. A cystic lesion is palpable in the middle phalanx suggestive of a ganglion. I recommended further evaluation by hand surgery, Dr. Johnson. The patient expressed understanding and agrees with the plan. (2) Abscess of skin of neck: Code(s): L02.11 - Cutaneous abscess of neck Plan: Patient has residual cyst located in the right neck following her recent infection. The infection does appear much improved but given the size of the lesion recurrent infection is definitely a possibility. I recommended an excision of the residual cyst under local anesthesia as a minor procedure. Will be performed in the office at her earliest convenience. After discussion of the procedure, risks, and alternatives, she consents to the surgery. Orders: Referrals 2 Hand Surgery Referral M67.449 - Ganglion, unspecified hand Coding Level of Care Code New Pt Level 4 (29988) Diagnoses Ganglion cyst of finger M67.449 Abscess of skin of neck L02.11
[2023-07-12 11:31] VITALS: BP 173/100; PULSE 72; BMI 32.4
== END 2023-07-12 11:41 | disposition home or self-care (01) ==
PROVIDERS: PCP Emergency Medicine; Referring Provider Emergency Medicine; Visit Provider Surgery
DX: M67.449 Ganglion, unspecified hand (principal); L02.11 Cutaneous abscess of neck
CPT/HCPCS: 99204

== ENCOUNTER → 2023-07-12 11:21 | Outpatient (BNVA) | payer MEDICAID, SELFPAY | PROVIDERS: PCP Emergency Medicine; Visit Provider Surgery | DX: L02.11 Cutaneous abscess of neck (principal); M67.442 Ganglion, left hand | CPT/HCPCS: 99202 ==

== ENCOUNTER 2023-07-26 09:52 | Outpatient (AMB) | payer MEDICAID, SELFPAY ==
--- NOTE | 2023-07-26 09:55 | A.OFFVIS_ITS ---
Intake Vital Signs 07/26/23 10:05 Height 5 ft 3 in Weight 183 lb BMI 32.4 BP 154/71 H Blood Pressure Location Lt brachial Position Sitting Intake Visit Reasons: Exc Rt neck cyst-in office Intake Note: Patient is seen in office for office procedure, excision of right neck cyst. 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 She feels well and denies any ongoing symptoms. 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 Office Procedures Excision Details: Preoperative diagnosis: Epidermal inclusion cyst right neck Postoperative diagnosis: same Procedure: excision of epidermal inclusion cyst right neck Surgeon: Ranjit Jj MD Cell Room Operator: none Anesthesia: lidocaine 1% with epinephrine Indications for procedure: previously infected epidermal inclusion cyst which spontaneously drained and now presents for excision to prevent further infections. Operative findings: 1.5 cm epidermal inclusion cyst without evidence of abscess Specimen: epidermal inclusion cyst right neck Estimated blood loss: less than 2 mL Complications: none Procedure details: patient was placed in a supine position with her neck turned to the left. The site of surgery was confirmed by the patient in the right neck. After assuring informed consent, the skin was prepped with Betadine and draped in a sterile fashion. Local anesthesia was then infiltrated around the lesion. A transverse elliptical incision was then created with a 15 blade. This was carried out through subcutaneous tissue and around the cyst wall. The lesion was passed off the table and sent to pathology for further examination. Skin was then closed using interrupted 3-0 nylon sutures. Sterile dressings consisting of 2 x 2 gauze and Tegaderm were then applied. The patient tolerated the procedure well. She was discharged to home in stable condition. [id number] scalp/neck/hands/feet/genitalia 1.1cm-2cm Procedure code (CPT) selection complete Assessment & Plan Assessment & Plan (1) Epidermal inclusion cyst: Code(s): L72.0 - Epidermal cyst Plan 42-year-old female patient with an epidermal inclusion cyst of the right neck. She underwent an excision of this lesion today and tolerated the procedure well. She will return in 1 week for suture removal. Orders: Orders Surgical Today L72.0 - Epidermal cyst Coding Level of Care Code Procedure Only Diagnoses Epidermal inclusion cyst L72.0 CPT Codes Scalp/Neck/Hands/Feet/Genetalia - CPT: 21954-[id number] scalp/neck/hands/feet/ genitalia 1.1cm-2cm ([id number])
[2023-07-26 10:05] VITALS: BP 154/71; BMI 32.4
== END 2023-07-26 10:26 | disposition home or self-care (01) ==
PROVIDERS: PCP Emergency Medicine; Visit Provider Surgery
DX: L72.0 Epidermal cyst (principal)
CPT/HCPCS: 11422

== ENCOUNTER 2023-07-26 09:52 | Outpatient (REF) | payer MEDICAID, SELFPAY | END 2023-07-26 09:53 | disposition home or self-care (01) | LOC: HO.LNP 09:52 | PROVIDERS: PCP Emergency Medicine; Visit Provider Surgery | DX: L72.0 Epidermal cyst (principal); Z79.899 Other long term (current) drug therapy | CPT/HCPCS: 11422; 88304 ==

== ENCOUNTER 2023-08-03 10:21 | Outpatient (AMB) | payer MEDICAID, SELFPAY ==
--- NOTE | 2023-08-03 10:45 | MHC.OFFVIS ---
Intake Vital Signs 08/03/23 10:46 Height 5 ft 3 in Weight 183 lb 2 oz BMI 32.4 BP 155/85 H Blood Pressure Location Lt brachial Position Sitting Pulse 81 Intake Visit Reasons: S/p exc right neck cyst-in office Intake Note: Patient is seen in office for one week follow up visit, post excision of right neck cyst. 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 Pathology revealed benign cyst with no evidence of malignancy. She tolerated the procedure well returns today for suture removal. 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 Sutures removed and the incision found to be well healed. Skin Other: Warm, dry, no rash Neuro General: patient oriented x3 Assessment & Plan Assessment & Plan (1) Epidermal inclusion cyst: Code(s): L72.0 - Epidermal cyst Plan 42-year-old female patient with a cyst of the right neck status post excision 1 week ago. She tolerated the procedure well the wounds are healing nicely. Sutures removed today and the wounds found to be well healed. She should follow up as needed. Coding Level of Care Code Global (56010) Diagnoses Epidermal inclusion cyst L72.0
[2023-08-03 10:46] VITALS: BP 155/85; PULSE 81; BMI 32.4
== END 2023-08-03 10:48 | disposition home or self-care (01) ==
PROVIDERS: PCP Emergency Medicine; Visit Provider Surgery
DX: L72.0 Epidermal cyst (principal)
CPT/HCPCS: 99024

== ENCOUNTER → 2023-08-03 10:21 | Outpatient (BNVA) | payer MEDICAID, SELFPAY | PROVIDERS: PCP Emergency Medicine; Visit Provider Surgery | DX: L72.0 Epidermal cyst (principal) | CPT/HCPCS: 99212 ==

== ENCOUNTER 2023-09-04 19:18 | Emergency (ER) | payer MEDICAID, SELFPAY ==
[2023-09-04 19:54] VITALS: BP 149/89; BP 176/110; PULSE 79; PULSE 88; RESP 16; TEMP 37.2; O2SAT 95; O2SAT 98; BMI 32.9
--- NOTE | 2023-09-04 19:57 | ED.GENADULT ---
HPI - General Adult General Chief complaint: Wound/Laceration Stated complaint: 1 in lac to L hand between thumb+index, knife History of Present Illness HPI narrative: left withtout competion of treatment Related Data Previous Rx's Medication Instructions Recorded albuterol sulfate 90 mcg/actuation 1 inh inhalation QID PRN shortness 10/04/21 aerosol inhaler of breath or wheezing #6.7 grams meclizine 25 mg tablet 25 mg PO TID PRN dizziness #10 tabs 10/04/21 cephalexin 500 mg tablet 500 mg PO Q6H 5 days #20 tabs 09/05/23 Allergies Allergy/AdvReac Type Severity Reaction Status Date / Time No Known Allergies Allergy Verified 09/04/23 19:54 [No Known Allergies*] PMFSH Past Medical History Medical History No known health problems Surgical History Hx of excision of epidermal inclusion cyst (07/27/23) H/O: hysterectomy Social History Social History Alcohol intake: never Advance Directives: No Advance Directives Information Provided: No Current occupational status: disabled 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 patient to be evaluated by ED provider. Discharge Plan Discharge Clinical Impression: Laceration Patient Disposition: Left W/O Completing Treatment Prescriptions: No Action albuterol sulfate 90 mcg/actuation HFA aerosol inhaler 1 inh inhalation QID PRN (Reason: shortness of breath or wheezing) Qty: 6.7 0RF meclizine 25 mg tablet 25 mg PO TID PRN (Reason: dizziness) Qty: 10 0RF cephalexin 500 mg tablet 500 mg PO Q6H 5 Days Qty: 20 0RF Discharge Date/Time: 09/04/23 23:46
== END 2023-09-04 23:46 | disposition left against medical advice (07) ==
PROVIDERS: Emergency Provider Emergency Medicine
DX: S61.412A Laceration without foreign body of left hand, initial encounter (principal); W26.0XXA Contact with knife, initial encounter; Y93.9 Activity, unspecified; Y92.9 Unspecified place or not applicable; Y99.8 Other external cause status
CPT/HCPCS: 99281

== ENCOUNTER 2023-09-05 08:37 | Emergency (ER) | payer MEDICAID, SELFPAY ==
[2023-09-05 08:39] VITALS: BP 144/81; PULSE 66; RESP 18; TEMP 37; O2SAT 98; BMI 33.5
--- NOTE | 2023-09-05 10:25 | ED_ITS ---
HPI - General Adult General Chief complaint: Skin/Abscess/Foreign Body Stated complaint: R Hand Lac 09/04/23 Time Seen by Provider: 09/05/23 09:51 Source: patient Mode of arrival: ambulatory Limitations: no limitations History of Present Illness HPI narrative: 43 year old female presents w/ lac to hand. Patient accidentally cut her hand last night while trying to cut a chunk of sugar. She called EMS, they came to her house, they wrapped her hand brought her to the hospital the wait was too long so patient decided to leave. Up-to-date on tetanus shot. No numbness or tingling, fevers, chills, chest pain, shortness of breath, nausea, vomiting. Related Data Previous Rx's Medication Instructions Recorded albuterol sulfate 90 mcg/actuation 1 inh inhalation QID PRN shortness 10/04/21 aerosol inhaler of breath or wheezing #6.7 grams meclizine 25 mg tablet 25 mg PO TID PRN dizziness #10 tabs 10/04/21 cephalexin 500 mg tablet 500 mg PO Q6H 5 days #20 tabs 09/05/23 Allergies Allergy/AdvReac Type Severity Reaction Status Date / Time No Known Allergies Allergy Verified 09/04/23 19:54 [No Known Allergies*] Review of Systems Review of Systems: Yes all other systems are reviewed and are negative PMFSH Past Medical History Attestation statement: The following information was validated with the patient. 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 Oriented X3.? No acute distress.? Head: Normocephalic, atraumatic, no step-offs or deformities Eyes: Pupils equal, round and reactive to light.? Neck: Normal inspection.? Neck supple.? CVS: Normal heart rate and rhythm.? Pulses normal.? Respiratory: No respiratory distress.? Breath sounds normal.? Abdomen: Soft and nontender.? Skin: Skin warm and dry.? Normal skin color.? Normal skin turgor.?+linear lac between the right 4-5th digit webspace region linear simple w/o foreign bodies. Extremities: No lower extremity edema.? No calf ttp. 5/5 strength to bilateral upper and lower extremities Neuro: Oriented X 3.? No motor deficit.? No sensory deficit. CN 2-12 intact Course Reevaluation(s) Reevaluation #1: 2 sutures placed. Tollerated procedure well. Educated patient on diagnosis and treatment plan, answered all question, patient verbalizes understanding. At this time patient will be discharged home, advised to return with new or worsening symptoms. Educated on worrisome signs and symptoms and when to return. At this time I feel comfortable discharge home. Time: 10:36 Procedures Laceration Laceration 1: Site: hand Side (If applicable): right Size (cm): 2 Description: linear Depth: simple, single layer Local Anesthetic: lidocaine 1% Amount of anesthesia used (mL): 4 Pre-repair: wound explored and irrigated extensively Skin layer closed with: vicryl Size (cm): 4-0 Number of sutures: 2 Medical Decision Making Medical Decision Making [facility] Narrative: 1027 43 year old female presents w/ lac to webspace b/t 4th-5th digits s/p cutting herself w/ knife. UTD on tetanus PE +linear lac between the right 4-5th digit webspace region linear simple w/o foreign bodies. History and physical exam concerning for simple laceration that will require repair. No signs of foreign body. Unlikely fracture, dislocation, neurovascular compromise or threat to limb. Plan at this time will repair laceration. Differential Diagnosis Differential Diagnoses: The differential diagnosis associated with the p resentation includes History and physical exam concerning for simple laceration that will require repair. No signs of foreign body. Unlikely fracture, dislocation, neurovascular compromise or threat to limb. Critical Care Time Critical Care Time Critical Care Time: No Discharge Plan Discharge Clinical Impression: Laceration of hand, right Patient Disposition: Home, Self-Care Instructions: Laceration (ED), Laceration Without Closure (ED) Additional Instructions: Take your medications as prescribed. If you were prescribed antibiotics today, it is important that you take your medication to their entirety, do not skip any doses, do not finish them early. Follow-up with your primary care provider this week. Return to the emergency department with new or worsening symptoms. Such as fevers, chills, chest pain, shortness of breath, nausea, vomiting, dizziness, headache, vision changes, lethargy In case of emergency call 911 Return in 5-7 days for suture removal. Prescriptions: New cephalexin 500 mg tablet 500 mg PO Q6H 5 Days Qty: 20 0RF No Action albuterol sulfate 90 mcg/actuation HFA aerosol inhaler 1 inh inhalation QID PRN (Reason: shortness of breath or wheezing) Qty: 6.7 0RF meclizine 25 mg tablet 25 mg PO TID PRN (Reason: dizziness) Qty: 10 0RF Referrals: Physician,None [Primary Care Provider] - 2 days
[2023-09-05 11:32] VITALS: BP 144/81; PULSE 66; RESP 18; TEMP 37; O2SAT 98
== END 2023-09-05 11:29 | disposition home or self-care (01) ==
PROVIDERS: Emergency Provider Emergency Medicine Emergency Medical Services
DX: S61.411A Laceration without foreign body of right hand, initial encounter (principal); W26.0XXA Contact with knife, initial encounter; Y93.G1 Activity, food preparation and clean up; Y92.89 Other specified places as the place of occurrence of the external cause; Y99.9 Unspecified external cause status
CPT/HCPCS: 12001; 99283

== ENCOUNTER 2024-08-28 10:07 | Outpatient (REF) | payer MEDICAID, SELFPAY ==
--- OUTSIDE RECORDS SUMMARY | 2024-08-28 11:26 | XMS_ITS | Encounter Summary ---
Author Organization [employer] Address [address] [place] [address] Care Team Providers Care Telephone Lineman Name Role Phone Kris Lee CNP Primary Care Provider [phone] Reason for Referral * Consultation (Urgent) - Pending Review Specialty Diagnoses / Procedures Referred By Dana chong Referred To Contact Otolaryngology Diagnoses Auditory effects of right ear Kris Lee CNP [address] [place] [address] Phone: tel: fax: Referral ID Status Reason Start Date Expiration Date Visits Requested Visits Authorized [id number] Pending Review Specialty Services Required 08/27/2024 08/27/2025 1 1 * Imaging (Routine) - Authorized Specialty Diagnoses / Procedures Referred By Dana chong Referred To Contact Radiology Diagnoses Encounter for screening mammogram for breast cancer Procedures BI Mammogram Screening Tomosynthesis Bilateral Kris Lee CNP [address] [place] [address] Phone: tel: fax: [address] Phone: tel: fax: Referral ID Status Reason Start Date Expiration Date V isits Requested Visits Authorized [id number] Authorized 08/27/2024 08/27/2025 1 1 * Consultation (Routine) - Authorized Specialty Diagnoses / Procedures Referred By Contac t Referred To Contact Family Medicine Diagnoses Healthcare maintenance Kris Lee CNP [address] [place] [address] Phone: tel: fax: Referral ID Status Reason Start Date Expiration Date Visits Requested Visits Authorized [id number] Authorized Specialty Services Required 08/27/2024 08/27/2025 1 1 * Consultation (Routine) - Authorized Specialty Diagnoses / Procedures Referred By Contac t Referred To Contact Dental Rim Turning Finisher / Dentistry Diagnoses Healthcare maintenance Kris Lee CNP [address] [place] [address] Phone: tel: fax: Referral ID Status Reason Start Date Expiration Date Visits Requested Visits Authorized [id number] Authorized Consult and Treat 08/27/2024 08/27/2025 1 1 * Consultation (Routine) - Authorized Specialty Diagnoses / Procedures Referred By Dana t Referred To Contact Optometry Diagnoses Healthcare maintenance Kris Lee CNP [address] [place] [address] Phone: tel: fax: [facility] OPTOMETRY [address] [place] [address] Phone: tel: fax: Referral ID Status Reason Start Date Expiration Date Visits Requested Visits Authorized [id number] Authorized Consult and Treat 08/27/2024 08/27/2025 1 1 Reason for Visit * Reason Comments New pt Encounter Details Date Type Department Care Team (Late st Contact Info) Description 08/27/2024 2:45 PM EDT Office Visit [facility] MEDICINE [address] [place] [phone] Kris Lee CNP [address] [place] [address] Encounter for screening mammogram for breast cancer (Primary Dx); Healthcare maintenance; Encounter for medical examination to establish care; Auditory effects of right ear; Encounter for immunization; Mild intermittent asthma without complication Social History Tobacco Use Types Packs/Day Years Used Date Smoking Tobacco: Never Passive Smoke Exposure: Never Smokeless Tobacco: Never Alcohol Use Standard Drinks/Week Comments Never 0 (1 standard drink = 0.6 oz pur e alcohol) Depression Answer Date Recorded Patient Health Questionnaire-9 Score 0 08/27/2024 Patient Health Questionnaire-9 Score 0 08/27/2024 Last PHQ-9: Questionnaire Data Not on file 0 08/27/2024 Housing Stability Answer Date Recorded What is your housing situation today? I have luisaemmanuel zamudio 08/27/[address] you li ve. Do you have problems with any of the following? Water leaks 08/27/2024 Food Insecurity Answer Date Recorded Within the past 12 months, y ou worried that your food would run out before you got money to buy more: Sometimes True 2024 Within the past 12 months,th e food you bought just didn't last and you didn't have enough money to get more: Sometimes True 08/27/2024 Transportation Answer Date Recorded In the past 12 months, has l ack of transportation kept you from medical appts, meetings, work or from getting things needed for daily living? No 08/27/2024 Utilities Answer Date Recorded In the past 12 months, has t he electric, gas, oil or water company threatened to shut off services in your home? No 08/27/2024 Depression Answer Date Recorded Patient Health Questionnaire-2 Score 0 08/27/2024 Internet Access Answer Date Recorded Internet Access Q1 No 08/27/2024 Internet Access Q2 I cannot afford it 08/27/2024 Comments No Sex and Gender Information Value Date Recorded Sex Assigned at Female 04/10/2022 10:14 AM EDT Legal Sex Female 10:14 AM EDT Gender Identity Female 04/10/2022 10:14 AM EDT Sexual Orientation Choose not to disclose 2021 10:14 AM EDT documented as of this encounter Last Filed Vital Signs Vital Sign Reading Time Taken Comments Blood Pressure 122/76 08/27/2024 2:28 PM EDT Pulse 80 08/27/2024 2:28 PM EDT Temperature 36.6 ??C (97.8 ??F) 08/27/2024 2:28 PM ED T Respiratory Rate 18 08/27/2024 2:28 PM EDT Oxygen Saturation 97% 08/27/2024 2:28 PM EDT Inhaled Oxygen Concentration - - Weight 83.7 kg (184 lb 9.6 oz) 08/27/2024 2:28 P M EDT Height - - Body Mass Index 32.7 04/28/2024 6:12 PM EST documented in this encounter Progress Notes * Kris Jesus, NITO - 08/27/2024 2:45 PM EDT Images from the original note were not included. Subjective: Mary Maradiaga is a 43 y.o. female who presents to the office for a transfer patient visit. Previous PCP unknown, has not received PCP care in 4-5 years. Current concerns: Chronic migraines, pt reports she gets a BENJAMIN once a week. When she gets th BENJAMIN she reports slight photosensitivity. Denies diplopia, denies worst BENJAMIN of life, denies thunderclap BENJAMIN, denies increasing frequency or severity. Reports that it is controlled on tylenol. Ear pain, reports a random sharp pain that appears out of nowhere in R ear, denies hearing loss, denies itchiness, denies pain, denies discharge, denies recent illness. Recurrent cysts of the skin- pt reports she has cysts that pop up on different areas of the body. She reports she has had a couple removed in the walk in center. She says she has one on her buttocks at the moment. Patient Active Problem List Diagnosis Asthma Abscess Encounter for medical examination to establish care Encounter for screening mammogram for malignant neoplasm of breast No past surgical history on file. Family History Problem Relation Name Age of Onset Hypertension Mother Stomach cancer Mother No Known Problems Father Brain cancer Mother's Sister Social History Living situation: lives with Employment/Education: not working Diet/exercise: none at this time,pt reports he has been trying to have her eat more healthymeals, less caffeine and less sodium Substance use: -alcohol : none -tobacco: no longer smoking quit 4 years ago, started smoking at 17 Contraception: Total Hysterectomy 2020- records pending Mental health: Patient Health Questionnaire-9 Score: 0 (08/27/2024 2:44 PM) Patient Health Questionnaire-2 Score: 0 (08/27/2024 2:44 PM) Thoughts that you would be better off or hurting yourself in some way: Not at all (08/27/2024 2:44 PM) MARICHUY-7 Total Score: 1 (08/27/2024 2:44 PM) No LMP recorded. (Menstrual status: Other). No longer getting menses No Known Allergies Review of Systems Constitutional: Negative for appetite change, chills, diaphoresis, fatigue, fever and unexpected weight change. HENT: Negative for ear discharge, ear pain and hearing loss. Eyes: Negative. Respiratory: Negative for apnea, cough, chest tightness, shortness of breath and wheezing. Cardiovascular: Negative for chest pain and palpitations. Gastrointestinal: Negative for abdominal distention, abdominal pain, blood in stool, constipation, diarrhea, nausea and vomiting. Endocrine: Negative. Genitourinary: Negative. Musculoskeletal: Negative for arthralgias, back pain, gait problem and myalgias. Skin: Negative for pallor. Allergic/Immunologic: Negative. Neurological: Negative for dizziness, syncope, speech difficulty, weakness, light-headedness, numbness and headaches. Psychiatric/Behavioral: Negative for behavioral problems, dysphoric mood and sleep disturbance. Thepatient is not nervous/anxious. Vitals: 08/27/24 1428 BP: 122/76 BP Location: Left arm Patient Position: Sitting BP Cuff Size: Adult Pulse: 80 Resp: 18 Temp: 97.8 ??F (36.6 ??C) TempSrc: Oral SpO2: 97% Weight: 184 lb 9.6 oz (83.7 kg) Physical Exam Constitutional: General: She is not in acute distress. Appearance: Normal appearance. She is not ill-appearing. HENT: Head: Normocephalic and atraumatic. Right Ear: Tympanic membrane, ear canal and external ear normal. There is no impacted cerumen. Left Ear: Tympanic membrane, ear canal and external ear normal. There is no impacted cerumen. Nose: No congestion or rhinorrhea. Mouth/Throat: Mouth: Mucous membranes are moist. Pharynx: No oropharyngeal exudate or posterior oropharyngeal erythema. Eyes: General: No scleral icterus. Right eye: No discharge. Left eye: No discharge. Extraocular Movements: Extraocular movements intact. Pupils: Pupils are equal, round, and reactive to light. Cardiovascular: Rate and Rhythm: Normal rate and regular rhythm. Pulses: Normal pulses. Heart sounds: Normal heart sounds. No murmur heard. No friction rub. No gallop. Pulmonary: Effort: Pulmonary effort is normal. No respiratory distress. Breath sounds: Normal breath sounds. No stridor. No wheezing, rhonchi or rales. Chest: Chest wall: No tenderness. Abdominal: General: Abdomen is flat. Bowel sounds are normal. There is no distension. Palpations: Abdomen is soft. There is no mass. Tenderness: There is no abdominal tenderness. There is no guarding. Musculoskeletal: General: Normal range of motion. Cervical back: Normal range of motion and neck supple. No tenderness. Right lower leg: No edema. Left lower leg: No edema. Lymphadenopathy: Cervical: No cervical adenopathy. Skin: General: Skin is warm and dry. Capillary Refill: Capillary refill takes less than 2 seconds. Neurological: General: No focal deficit present. Mental Status: She is alert and oriented to person, place, and time. Psychiatric: Mood and Affect: Mood normal. Behavior: Behavior normal. Thought Content: Thought content normal. Judgment: Judgment normal. Routine Screening and Health Maintenance Optometry: No, needs referral Dentist: No , needs referral Lab Review: see orders Routine Cancer Screening Breast CA: due Cervical CA: due Colon CA: not due until age 46 Lung CA: need to determine pack year at next appt, unable to assess today. Problem List Items Addressed This Visit Encounter for medical examination to establish care Relevant Orders HIV-1/2 Antigen and Antibodies, Fourth Generation, with Reflexes Hepatitis C Antibody with Reflex to HCV, RNA, Quantitative, Real-Time PCR CBC auto differential TSH W/Reflex to FT4 Comprehensive Metabolic Panel Hemoglobin A1c Physical exam wnl today Plan to obtain routine bloodwork Plan to establish care with [facility] vision and dental-referral placed Due for pap smear, plan to complete with me next month Due for mammo Other Visit Diagnoses Encounter for screening mammogram for breast cancer - Primary Relevant Orders BI Mammogram Screening Tomosynthesis Bilateral Healthcare maintenance Relevant Orders Referral to [facility] Eye Care Referral to [facility] Dental Adult Referral to [facility] Derm Skin Adult Auditory effects of right ear Relevant Orders Referral to ENT No physical abnormalities noted on exam Neuro exam wnl Plan to send urgent referral to ENT for further evaluation Encounter for immunization Relevant Orders FLU VACCINE TRIVALENT (Fluzone) 6 mo + (Completed) PCV-20 VACCINE 6 wks + (Completed) TDAP VACCINE 7 yrs + (Completed) COVID-19 VACCINE (Pfizer) [id number] 12 yrs + (Completed) Pt agrees to the above vaccinations. F/u in 1 month for pap smear [facility] GYROSCOPIC INSTRUMENT TESTER Attestation GYROSCOPIC INSTRUMENT TESTER Resident Attestation: Patient was seen and evaluated by Kris Lee CNP, in collaboration with Roxana Gomez MD who has reviewed my assessment and plan. I, Roaxna Gomez MD , have reviewed the resident's note and agree with the assessment & plan of care as documented above. documented in this encounter Plan of Treatment Upcoming Encounters Date Type Department Care Team (Late st Contact Info) Description 10/08/2024 10:15 AM EDT Procedure Visit [facility] [address] [place] [phone] Kris Lee CNP [address], [place] [phone] Scheduled Orders Name Type Priority Associated Diagnoses Orde r Schedule BI Mammogram Screening Tomosynthesis Bilateral Imaging Routine Encounter for screening mammogram for breast cancer Expected: 08/27/2024, Expires: 10/27/2025 HIV-1/2 Antigen and Antibodies, Fourth Generation, with Reflexes Lab Routine Encounter for medical examination to establish care Expected: 08/27/2024 (Approximate), Expires: 08/27/2025 Hepatitis C Antibody with Reflex to HCV, RNA, Quantitative, Real-Time PCR Lab Routine Encounter for medical examination to establish care Expected: 08/27/2024, Expires: 08/27/2025 CBC auto differential Lab Routine Encounter for medical examination to establish care Expected: 08/27/2024 (Approximate), Expires: 08/27/2025 TSH W/Reflex to FT4 Lab Routine Encounter for medical examination to establish care Expected: 08/27/2024 (Approximate), Expires: 08/27/2025 Comprehensive Metabolic Panel Lab Routine Encounter for medical examination to establish care Expected: 08/27/2024 (Approximate), Expires: 08/27/2025 Hemoglobin A1c Lab Routine Encounter for medical examination to establish care Expected: 08/27/2024 (Approximate), Expires: 08/27/2025 Scheduled Referrals Name Type Priority Associated Diagnoses Orde r Schedule Referral to [facility] Eye Care Outpatient Referral Routine Healthcare maintenance Expected: 08/27/2024 (Approximate), Expires: 08/27/2025 Referral to [facility] Dental Adult Outpatient Referral Routine Healthcare maintenance Expected: 08/27/2024 (Approximate), Expires: 08/27/2025 Referral to [facility] Derm Skin Adult Outpatient Referral Routine Healthcare maintenance Expected: 08/27/2024 (Approximate), Expires: 08/27/2025 Referral to ENT Outpatient Referral Urgent Auditory effects of right ear Expected: 08/27/2024 (Approximate), Expires: 08/27/2025 documented as of this encounter Visit Diagnoses Diagnosis Encounter for screening mammogram for breast cancer- Primary Healthcare maintenance Encounter for medical examination to establish care Auditory effects of right ear Encounter for immunization Mild intermittent asthma without complication documented in this encounter Additional Health Concerns Assessment Noted Time PHQ-9 Depression Total Score: 0 08/28/19 2:44 PM EDT documented as of this encounter Care Teams Telephone Lineman Relationship Specialty Start Date End Date Kris Lee CNP [address] [place] [phone] PCP - General Family Medicine 08/27/24 documented as of this encounter
--- OUTSIDE RECORDS SUMMARY | 2024-08-28 11:26 | XMS_ITS | Encounter Summary ---
Author Organization [employer] Address [address] [facility] [address] [place] [address] Care Team Providers Care Final Finisher Name Role Phone Unavailable Primary Care Provider Unavailabl e Reason for Visit * Reason Comments Pre-visit Planning Pre-visit planning - PVP screening will need to be complete in office. Encounter Details Date Type Department Care Team ([facility] st Contact Info) Description 08/19/2024 Patient Outreach [facility] [address] [place], [place] [phone] Kris Lee CNP [address] [place], [place] [phone] Pre-visit Planning (Pre-visit planning - PVP screening will need to be complete in office. ) Social History Tobacco Use Types Packs/Day Years Used Date Smoking Tobacco: Never Passive Smoke Exposure: Never Smokeless Tobacco: Never Alcohol Use Standard Drinks/Week Comments Never 0 (1 standard drink = 0.6 oz pur e alcohol) Comments No Sex and Gender Information Value Date Recorded Sex Assigned at Female 04/10/2022 10:14 AM EDT Legal Sex Female 10:14 AM EDT Gender Identity Female 04/10/2022 10:14 AM EDT Sexual Orientation Choose not to disclose 2021 10:14 AM EDT documented as of this encounter Progress Notes * Jazlyn Adame - 08/19/2024 1:32 PM EDT HEIKE Wolff placed successful outbound call to patient for pre-visit planning. Patient name and confirmed by who stated is not with patient at the moment . Patient confirms appt date and time, and has transportation arrangements but unable to complete PVP screening. documented in this encounter Plan of Treatment Upcoming Encounters Date Type Department Care Team ([facility] st Contact Info) Description 10/08/2024 10:15 AM EDT Procedure Visit [facility] [address] [place] [address] Kris Lee, NITO [address] [place], [place] [phone] documented as of this encounter Visit Diagnoses Not on filedocumented in this encounter
--- OUTSIDE RECORDS SUMMARY | 2024-08-28 11:26 | XMS_ITS | Encounter Summary ---
Author Organization [employer] Address [address] [place] [address] [address] [place] [address] Care Team Providers Care Process Control Technician Name Role Phone Unavailable Primary Care Provider Unavailabl e Reason for Visit * Reason Onset Date Comments Chart Prep 08/05/2024 Encounter Details Date Type Department Care Team ([facility] st Contact Info) Description 08/05/2024 Telephone [facility] [address] [place] [address] Kris Lee CNP [address] [place] [address] Chart Prep Social History Tobacco Use Types Packs/Day Years [...] AM EDT documented as of this encounter Miscellaneous Notes * Telephone Encounter - Colt Luther [place] - 08/05/2024 1:08 PM EST Chart Prep Labs: not done Images: done Vaccines due: yes PCV Tdap Flu Covid Referrals: pending appt Screenings: mammogram , pap smear Overdue care gaps: Sbirt, PHQ-9 documented in this encounter Plan of Treatment Upcoming Encounters Date Type Department Care Team (Late st Contact Info) Description 10/08/2024 10:15 AM EDT Procedure Visit [facility] [address] [place] [address] Kris Lee CNP [address] [place], [place] [phone] documented as of this encounter Visit Diagnoses Not on filedocumented in this encounter
--- OUTSIDE RECORDS SUMMARY | 2024-08-28 11:26 | XMS_ITS | Encounter Summary ---
Author Organization [employer] Address [address] [facility] [address] [place] [address] Care Team Providers Care Rn Operating Room Name Role Phone Unavailable Primary Care Provider Unavailabl e Encounter Details Date Type Department Care Team (Late st Contact Info) Description 08/22/2024 Population Health Risk Score [facility] (C3) Department [address] [phone] Provider, Population Health Generic Social History Tobacco Use Types Packs/Day Years [...] AM EDT documented as of this encounter Plan of Treatment Upcoming Encounters Date Type Department Care Team (Late st Contact Info) Description 10/08/2024 10:15 AM EDT Procedure Visit [facility] [address] [place] [address] Kris Lee CNP [address] [place] [address] documented as of this encounter Visit Diagnoses Not on filedocumented in this encounter
--- OUTSIDE RECORDS SUMMARY | 2024-08-28 11:26 | XMS_ITS | Encounter Summary ---
Author Organization [employer] Address [address] [facility] [address] [place] [address] Care Team Providers Care Chief Estimator Name Role Phone JesusKris NITO Primary Care Provider [phone] Encounter Details Date Type Department Care Team (Latest Contact Info) Description 08/27/2024 Travel Social History Tobacco Use Types Packs/Day Years [...] Description 10/08/2024 10:15 AM EDT Procedure Visit [facility] [address] [place], [place] [phone] Kris Lee CNP [address] [place] [address] documented as of this encounter Visit Diagnoses Not on filedocumented in this encounter Additional Health Concerns Assessment Noted Time PHQ-9 Depression Total Score: 0 08/28/19 2:44 PM EDT documented as of this encounter Care Teams Chief Estimator Relationship Specialty Start Date End Date Kris Lee CNP [address] [place], [place] [phone] PCP - General Family Medicine 08/27/24 documented as of this encounter
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
--- OUTSIDE RECORDS SUMMARY | 2024-08-28 11:27 | XMS_ITS | Encounter Summary ---
Author Organization [employer] Address [address] [facility] [address] [place] [address] Care Team Providers Care User Support Specialist Name Role Phone Jesus Cameronilda BEAUCHAMP Primary Care Provider [phone] Reason for Visit * Reason Onset Date Comments New Patient 02/06/2023 Encounter Details Date Type Department Care Team (Late st Contact Info) Description 02/06/2023 Telephone [facility] [address] [place] [address] Praveen Griffin MD [address] [place] [address] New Patient Social History Tobacco Use Types Packs/Day Years Used Date Smoking Tobacco: Never Passive Smoke Exposure: Never Smokeless Tobacco: Never Comments Unknown Sex and Gender Information Value Date Recorded Sex Assigned at Female 04/10/2022 10:14 AM EDT Legal Sex Female 10:14 AM EDT Gender Identity Female 04/10/2022 10:14 AM EDT Sexual Orientation Choose not to disclose 2021 10:14 AM EDT documented as of this encounter Miscellaneous Notes * Telephone Encounter - Ariel Tolbert - 02/06/2023 11:37 AM EDT 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
[2024-08-28 11:28] LABS: MANUAL DIFF FLAG NO
[2024-08-28 11:45] LABS: Basophils Percent Auto 0.3 % (0-2); Eosinophils Percent Auto 0.3 % (0-4); Hematocrit 38.9 % (37.0-47.0); Hemoglobin 13.1 g/dl (12.0-16.0); Imm Gran Abs Auto 0.04 X10*3/uL (0.00-0.03); Imm Gran Pct Auto 0.4 % (0.0-0.4); Lymphocytes Absolute Auto 1.7 X10*3/uL (1.2-4.9); Lymphocytes Percent Auto 15.6 % (20-40); Mean Corpuscular HGB Conc 33.7 g/dl (31.0-35.0); Mean Corpuscular Hemoglobin 28.2 pg (27.0-33.0); Mean Corpuscular Volume 83.8 fL (80.0-98.0); Mean Platelet Volume 11.2 fL (9.4-12.3); Monocytes Absolute Auto 0.5 X10*3/uL (0.1-1.2); Neutrophils Absolute Auto 8.5 x10*3/uL (2.0-8.3); Neutrophils Percent Auto 78.4 % (45-73); Platelet Count 320 X10*3/uL (160-400); Red Blood Count 4.64 X10*6/uL (4.20-5.50); Red Cell Distribution Width 14.1 % (11.0-16.0); White Blood Count 10.9 X10*3/uL (4.8-10.8)
[2024-08-28 11:52] LABS: Estimated Average Glucose 114 mg/dL; Hemoglobin A1C 131.9605 umol/L; Hemoglobin A1c % 5.6 % (<6.0)
[2024-08-28 12:25] LABS: HIV AB/AG Nonreactive (Nonreactive); HIV Num 1 0.07 S/CO (0.00-0.99); ~Hepatitis C Antibody Nonreactive (Nonreactive)
[2024-08-28 12:26] LABS: Alanine Aminotransferase 30 U/L (0-31); Albumin Level 4.1 g/dL (3.5-5.0); Alkaline Phosphatase 68 U/L (39-117); Anion Gap 11 (12-20); Aspartate Amino Transferase 23 U/L (5-31); Bilirubin Total 0.3 mg/dL (0.0-1.0); Blood Urea Nitrogen 13 mg/dL (9-16); Calcium 8.9 mg/dL (8.4-10.2); Carbon Dioxide 23 mmol/L (22-29); Chloride 108 mmol/L (96-108); Estimated Glomerular Filt Rate > 60; Glucose Random 84 mg/dL (60-115); Sodium 138 mmol/L (135-145); TSH reflex Free T4 1.32 uIU/mL (0.32-4.0); Total Protein 7.7 g/dL (6.5-8.0)
== END 2024-08-28 10:08 | disposition home or self-care (01) ==
LOC: HO.HHCL 10:07
DX: Z00.00 Encounter for general adult medical examination without abnormal findings (principal); Z11.4 Encounter for screening for human immunodeficiency virus [HIV]
CPT/HCPCS: 36415; 80053; 83036; 84443; 85025; 86803; 87389

== ENCOUNTER 2024-10-17 13:48 | Outpatient (REF) | payer MEDICAID, SELFPAY | END 2024-10-17 13:49 | disposition home or self-care (01) | LOC: HO.MAMMO 13:48 | DX: Z12.31 Encounter for screening mammogram for malignant neoplasm of breast (principal) | CPT/HCPCS: 77063; 77067 ==

== ENCOUNTER → 2024-10-17 14:15 | Outpatient (BNV) | payer MEDICAID, SELFPAY | PROVIDERS: Visit Provider Internal Medicine | DX: Z12.31 Encounter for screening mammogram for malignant neoplasm of breast (principal) | CPT/HCPCS: 77063; 77067 ==